=== PATIENT | male | born 1960 | race Two or more races ===

== ENCOUNTER → 2020-12-24 11:50 | Outpatient (CLI) | payer BC, SELFPAY ==
--- NOTE | ~2020-12-24 | MR_ITS ---
EXAMINATION: MR knee LT wo con DATE: 12/24/2020 12:38 INDICATION: Left knee pain TECHNIQUE: Magnetic resonance imaging (MRI) of the left knee was performed without intravenous contra st. Sequences included coronal PD-weighted FSE, coronal PD-weighted FS FSE, sagittal T2-weighted FSE , sagittal PD-weighted FS FSE and axial PD weighted fat saturated FSE. COMPARISON: Left knee radiograph dated 12/16/2020 FINDINGS: Medial compartment: Longitudinal horizontal tear extending to the inferior articular surface of the body and posterior ho rn of the medial meniscus. Diffuse mild partial-thickness cartilage loss throughout the medial compar tment with focal regions of likely deeper fissuring with underlying subarticular edema at the anterio r weightbearing medial femoral condyle and along the medial margin of the posterior weightbearing med ial femoral condyle. Lateral compartment: Lateral meniscus is normal. Mild partial-thickness chondral fissuring without degenerative subchondra l changes at the central and posterior lateral tibial plateau. Patellofemoral compartment: Extensive partial thickness cartilage loss at the patella with more focal deep fissuring and mild sub articular edema along the inferior aspect of the medial and lateral patellar facets. Trochlear cartil age is normal. Ligaments and tendons: Anterior and posterior cruciate ligaments are normal. The medial collateral ligament is normal. Mild thickening and mild increased signal at the proximal fibular collateral ligament without surrounding edema consistent with mild scarring related to chronic sprain. Quadriceps tendon is normal. Mild tend inopathy of the proximal patellar tendon without tear. The visualized medial and lateral hamstring te ndons as well as the iliotibial band are normal. Fluid: Physiologic amount of fluid in the joint space. No loose osteochondral bodies identified. Osseous/other: Bone alignment is normal. No fracture or pathologic marrow replacing process. IMPRESSION: 1. Longitudinal horizontal medial meniscal tear. 2. 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 Reviewed, dictated and finalized at location A. IMPRESSION: 1. Longitudinal horizontal medial meniscal tear. 2. Mild tricompartmental osteoarthritis with small regions of high-grade chondr omalacia along the weightbearing medial femoral condyle and inferior patella.
== END ==
PROVIDERS: PCP Internal Medicine; Visit Provider Orthopaedic Surgery
DX: M17.12 Unilateral primary osteoarthritis, left knee (principal); S83.242A Other tear of medial meniscus, current injury, left knee, initial encounter; X58.XXXA Exposure to other specified factors, initial encounter
CPT/HCPCS: 73721

== ENCOUNTER 2021-01-07 02:06 | Day surgery (SDC) | payer BC, SELFPAY ==
[2021-01-06 08:33] VITALS: BMI 30.9
[2021-01-07] VITALS (8 sets, daily range): BP systolic 104–152; BP diastolic 70–97; PULSE 78–86; RESP 12–18; TEMP 36.3–37; O2SAT 97–100
--- NOTE | 2021-01-07 07:20 | WPDHPUPDATE1 ---
History and Physical Update Update Date/Time: 01/07/21 07:20 History and Physical has been reviewed, including an updated exam of the patient. There are NO changes in the patient's condition. Risks, benefits, and alternatives have been discussed and questions answered. Patient agrees to proceed with procedure.
[2021-01-07] MEDS: ACETAMINOPHEN 500 MG TABLET 1000 MG PO (12:49)
[2021-01-07] MEDS: CELECOXIB 200 MG CAPSULE PO (12:50)
[2021-01-07] MEDS: LACTATED RINGERS 1,000 ML 30 ML IV CONT (12:50)
--- NOTE | 2021-01-07 14:08 | WPDANESEPPF ---
Anes - Initial Pre Proc Eval Procedure: Operation Date: 01/07/21 14:00 Proposed Procedures p Left Knee Arthroscopy, Proceed As Indicated - Devon Castaneda MD Date/Time: 01/07/21 14:08 Surgeon: Devon Castaneda MD Pre Op Diagnosis: left knee medial meniscal tear Patient Data Age: 60 Gender: M Height: 1.8 m Weight: 100.2 kg Last Vital Signs Temp 36.3 C L 01/07/21 11:50 Pulse 79 01/07/21 11:50 Resp 18 01/07/21 11:50 BP 130/95 H 01/07/21 11:50 Pulse Ox 98 01/07/21 11:50 Allergies Allergy/AdvReac Type Severity Reaction Status Date / Time No Known Allergies Allergy Verified 01/07/21 12:56 Home Medications Medication Instructions Recorded Confirmed Type ibuprofen 200 mg capsule 600 mg PO Q6H PRN 12/16/20 01/07/21 History chlorhexidine gluconate 4 % 1 applic TOPICAL ONCE #237 ml 01/02/21 01/07/21 Rx topical liquid Adult One Daily Multivitamin 1 tab-cap PO DAILY 01/06/21 01/07/21 History lysine 1,000 mg PO DAILY 01/06/21 01/06/21 History tadalafil 10 mg PO DAILY PRN 01/06/21 01/06/21 History Patient hx anesthesia problems: none Family hx anesthesia problems: none PMFSH Past Medical History Medical History Left knee pain Medial meniscus tear Weight gain Surgical History Surgical History (Updated 01/07/21 @ 14:09 by Harrison Anglin DO) History of appendectomy Social History Social History Smoking status: Never smoker Second hand tobacco smoke exposure: No Alcohol intake: never Substance use: never Substance use type: does not use Living arrangements: alone Gender identity (if verbalized by the patient): Male Spiritual care concerns: No Anes - Eval Final PreProcedure Day of Procedure 01/07/21 14:08 Patient weight: obese Heart: regular rate and rhythm Lungs: clear to auscultation and normal air movement Airway: Mallampati scale class II Neurological: alert and oriented Last oral intake: >/= 8 hours ASA classification: II Emergent: no Anesthetic plan: proceed Anesthesia type and monitoring: general LMA and standard monitoring Informed Consent: The patient's anesthetic plan and its attendant risks and benefits were discussed with the patient/family/POA. Questions were solicited and answers provided to the satisfaction of the patient/family/POA.
[2021-01-07] MEDS: ceFAZolin 2 GM/D5W 50 ML 2 GM/50 ML BAG IVPB (14:36)
[2021-01-07] MEDS: BUPIVACAINE HCL 0.5% PF 30 ML VIAL INFILTRATE (14:54)
--- NOTE | 2021-01-07 15:26 | W.PM.PROC2 ---
Procedure Note - Detailed Date of Procedure 01/07/21 Pre-op Diagnosis left knee medial meniscal tear Post-op Diagnosis same Procedure Performed LEFT KNEE SCOPE Surgeon Devon Castaneda MD Anesthesia general Description of Procedure PATIENT WAS TAKEN TO THE OR. LEFT LEG WAS PREPPED AND DRAPED STERILE. TROCARS WERE PLACED IN THE USUAL FASHION. CAMERA WAS INTRODUCED. THERE WAS CHONDROMALACIA TO THE PATELLA FEMORAL JOINT. THERE WAS A LOT OF SYNOVITIS IN ALL COMPARTMENTS. THE MEDIAL COMPARTMENT SHOWED MINIMAL CHONDROMALACIA TO THE MEDIAL FEMORAL CONDYLE. THERE WAS A COMPLEX MEDIAL MENISCUS TEAR. THE TEAR WAS RESECTED WITH A BITER AND A SHAVER DOWN TO A SMOOTH BASE. ABOUT 10% OF THE MENISCUS WAS REMOVED. THE ACL WAS INTACT. THE LATERAL MENISCUS WAS NOT TORN. THE LATERAL COMPARTMENT HAD MINIMAL CHONDROMALACIA. A SYNOVECTOMY WAS PREFORMED WELL. THE PATELLO FEMORAL JOINT UNDERWENT CHONDROPLASTY. THERE WAS GRADE 2 CHONDROMALACIA IN PART OF THE PATELLA. SYNOVECTOMY WAS PREFORMED IN THE SUPERIOR MEDIAL COMPARTMENT. THE WOUNDS WERE APPROXIMATED WITH 4.0 NYLON. STERILE DRESSING WAS APPLIED. PATIENT WAS EXTUBATED. Estimated Blood Loss 5 Complications No immediate complications Condition stable Disposition PACU
== END 2021-01-07 17:30 | disposition home or self-care (01) ==
PROVIDERS: PCP Internal Medicine; Visit Provider Orthopaedic Surgery
PROC: (CPT 29870; principal; 2021-01-07 14:00)
DX: S83.232A Complex tear of medial meniscus, current injury, left knee, initial encounter (principal); M22.42 Chondromalacia patellae, left knee; E66.9 Obesity, unspecified; Z68.30 Body mass index [BMI] 30.0-30.9, adult; Y99.9 Unspecified external cause status; X58.XXXA Exposure to other specified factors, initial encounter; Y93.9 Activity, unspecified; Y92.9 Unspecified place or not applicable
CPT/HCPCS: 29881; 29876; A9270; J0690; J1100; J2250; J2405; J2704; J3010; J7120